=== PATIENT | female | born 1990 | race Two or more races ===

== ENCOUNTER 2017-07-18 15:07 | Emergency (ER) | payer OTHER ==
[~2017-07-18] VITALS: Ht 170.2 cm; Wt 73.4 kg
[2017-07-18] MEDS ORDERED: CEFTRIAXONE PMX 1GM/50ML 50 ML ONE (15:48)
[2017-07-18] MEDS ORDERED: CEFTRIAXONE PMX 1GM/50ML 50 ML IVPB ONE (16:00)
[2017-07-18 16:09] LABS: HEMOGLOBIN 13.7 g/dL (11.7-16.4); WHITE BLOOD COUNT 10.7 x10^3/uL (3.4-10)
[2017-07-18 16:17] LABS: BLOOD UREA NITROGEN 15 mg/dL (7-18)
[2017-07-18 16:40] VITALS: BP 94/62
== END 2017-07-18 16:55 | disposition home or self-care (01) ==
LOC: ED 15:32
DX: N10 Acute pyelonephritis (principal)
CPT/HCPCS: 36415; 80048; 82040; 85025; 96365; 99284; J0696